=== PATIENT | female | born 1990 | race American Indian/Alaskan Native ===

== ENCOUNTER 2018-11-12 12:42 | Emergency (ER) | payer BC, MEDICAID, OTHER ==
--- NOTE | 2018-11-12 12:57 | Event Note ---
ED Screening Note Date of service: 11/12/18 Time: 12:52 ED Screening Note: This is a 28 y.o. F. that presents with vaginal bleeding. Changing pads every 5-10 minutes. Miscarriage 4-6 weeks ago in [place]. A1 This initial assessment/diagnostic orders/clinical plan/treatment(s) is/are subject to change based on patients health status, clinical progression and re- assessment by fellow clinical providers in the ED. Further treatment and workup at subsequent clinical providers discretion. Patient/guardian urged not to elope from the ED as their condition may be serious if not clinically assessed and managed. Initial orders include: labs and US Main ED
[2018-11-12 15:05] LABS: Basophils % (Auto) 0.8 % (0.0-1.8); Eosinophils # (Auto) 0.1 K/mm3 (0.0-0.4); Eosinophils % (Auto) 1.4 % (0.0-4.3); Hematocrit 31.5 % (30.3-42.9); Hemoglobin 10.4 gm/dl (10.1-14.3); Lymphocytes # (Auto) 2.2 K/mm3 (1.2-5.4); Lymphocytes % (Auto) 48.3 % (13.4-35.0); Mean Corpuscular HGB Conc 33 % (30-34); Mean Corpuscular Volume 73 fl (79-97); Monocytes # (Auto) 0.4 K/mm3 (0.0-0.8); Monocytes % (Auto) 8.6 % (0.0-7.3); Platelet Count 275 K/mm3 (140-440); Red Blood Count 4.34 M/mm3 (3.65-5.03); Red Cell Distribution Width 15.6 % (13.2-15.2)
--- NOTE | 2018-11-12 15:44 | Emergency Department Report ---
HPI - HPI HPI: Room 26 The patient is a 28-year-old female presenting with chief complaint of vaginal bleeding. Patient states about 6 weeks ago she had a miscarriage. The patient states she continued to have bleeding so she returned to the hospital floor where she had an ultrasound performed which did not reveal retained products of conception. She states 3 days later the bleeding slowed down to just vaginal s potting. The patient states 3 weeks ago she developed heavy vaginal bleeding going through approximately 14 pads per day. Patient complains of feeling fatigued. Patient states she recently moved to [place] from [place] and has not yet seen a licensed nuclear control room operator Location: Genitourinary system Duration: [See above] Quality: [See above] Severity: [See above] Modifying factors: [see above] Context: [see above] Mode of transportation: [not driving] <ROSE GUERRERO - Last Filed: 11/12/18 19:48> <TAVIA LE - Last Filed: 11/12/18 23:11> - General Chief Complaint: Vaginal Bleeding Time Seen by Provider: 11/12/18 12:51 ED Past Medical Hx - Past Medical History Additional medical history: Pre-Eclampsia both pregnancies AMENIA - Surgical History Additional Surgical History: 2010. 2011 - Family History Family history: no significant - Social History Smoking Status: Never Smoker Substance Use Type: None <ROSE GUERRERO - Last Filed: 11/12/18 19:48> <TAVIA LE - Last Filed: 11/12/18 23:11> - Medications Home Medications: Home Medications Medication Instructions Recorded Confirmed Last Taken Type Pnv95/Ferrous Fumarate/FA 1 each PO QDAY #30 tablet 09/08/13 Unknown Rx [ Vitamins] Acetaminophen [Non-Aspirin Extra 500 mg PO Q6HR PRN #30 tablet 11/12/18 Unknown Rx Strength] Ibuprofen [Motrin] 600 mg PO Q8H PRN #30 tablet 11/12/18 Unknown Rx ED Review of Systems ROS: Stated complaint: VAGINAL BLEEDING Other details as noted in HPI Constitutional: malaise (GENERAL: The patient is well-developed well-nourished []. []) Eyes: denies: eye pain ENT: denies: throat pain Respiratory: denies: no symptoms reported Cardiovascular: denies: chest pain Endocrine: no symptoms reported Gastrointestinal: denies: abdominal pain Genitourinary: abnormal menses Musculoskeletal: denies: back pain Skin: denies: lesions Neurological: denies: headache <ROSE GUERRERO Etienne - Last Filed: 11/12/18 19:48> ROS: Stated complaint: VAGINAL BLEEDING Other details as noted in HPI <TAVIA LE - Last Filed: 11/12/18 23:11> Physical Exam - Physical Exam Vital Signs: Vital Signs 11/12/18 12:49 Temperature 98.2 F Pulse Rate 86 Respiratory 20 Rate Blood Pressure 158/101 O2 Sat by Pulse 99 Oximetry Physical Exam: GENERAL: The patient is well-developed well-nourished female lying on stretcher not appearing to be in acute distress. [] HEENT: Normocephalic. Atraumatic. Extraocular motions are intact. Patient has moist mucous membranes. NECK: Supple. Trachea midline CHEST/LUNGS: Clear to auscultation. There is no respiratory distress noted. HEART/CARDIOVASCULAR: Regular. There is no tachycardia. There is no gallop rub or murmur. ABDOMEN: Abdomen is soft, nontender. Patient has normal bowel sounds. There is no abdominal distention. SKIN: There is no rash. There is no edema. There is no diaphoresis. NEURO: The patient is awake, alert, and oriented. The patient is cooperative. The patient has normal speech MUSCULOSKELETAL:There is no evidence of acute injury. PELVIC: Moderate amount of dark red blood in the vault <ROSE GUERRERO Etienne - Last Filed: 11/12/18 19:48> - Physical Exam Vital Signs: Vital Signs 11/12/18 11/12/18 11/12/18 12:49 16:31 21:02 Temperature 98.2 F 98.0 F Pulse Rate 86 88 Respiratory 20 20 Rate Blood Pressure 158/101 123/79 Blood Pressure 148/78 [Left] O2 Sat by Pulse 99 100 Oximetry <TAVIA LE - Last Filed: 11/12/18 23:11> ED Course Vital Signs 11/12/18 12:49 Temperature 98.2 F Pulse Rate 86 Respiratory 20 Rate Blood Pressure 158/101 O2 Sat by Pulse 99 Oximetry <ROSE GUERRERO Etienne - Last Filed: 11/12/18 19:48> Vital Signs 11/12/18 11/12/18 11/12/18 12:49 16:31 21:02 Temperature 98.2 F 98.0 F Pulse Rate 86 88 Respiratory 20 20 Rate Blood Pressure 158/101 123/79 Blood Pressure 148/78 [Left] O2 Sat by Pulse 99 100 Oximetry - Reevaluation(s) Reevaluation #1: 11/12/18 23:08 Laboratory studies reviewed. Ultrasound reports reviewed. Went back to evaluate the patient. The patient does not have any urinary symptoms. Do not think urinalysis indicated emergently at this time. She reports having had a miscarriage 4 or 5 weeks ago. Her ultrasound today suggests retained products of conception. Given her elevated blood pressure, she is not a candidate for Methergine. Contacted gynecology on-call, Dr. Mcdonald, and we discussed the case. She does not recommend Provera at this time. She does not recommend Cytotec at this time. She does recommend that the patient follow up with her first thing Thursday morning in order to discuss definitive care and plans. Of the history and physical, duration of symptoms, an objective available evidence, the patient does not meet criteria for hospitalization, were emergent D&C at this time. Went back and discussed this with the patient. She verbalizes understanding. She states that she is reliable to follow up <TAVIA LE - Last Filed: 11/12/18 23:11> ED Medical Decision Making - Lab Data Result diagrams: 11/12/18 13:18 - Differential Diagnosis menorrhagia, retained products of conception, metromenorrhagia <ROSE GUERRERO - Last Filed: 11/12/18 19:48> - Lab Data Result diagrams: 11/12/18 13:18 Vital Signs 11/12/18 11/12/18 11/12/18 12:49 16:31 21:02 Temperature 98.2 F 98.0 F Pulse Rate 86 88 Respiratory 20 20 Rate Blood Pressure 158/101 123/79 Blood Pressure 148/78 [Left] O2 Sat by Pulse 99 100 Oximetry Lab Results 11/12/18 11/12/18 11/12/18 Range/Units 13:18 14:48 14:48 WBC 4.6 (4.5-11.0) K/mm3 RBC 4.34 (3.65-5.03) M/mm3 Hgb 10.4 (10.1-14.3) gm/dl Hct 31.5 (30.3-42.9) % MCV 73 L (79-97) fl MCH 24 L (28-32) pg MCHC 33 (30-34) % RDW 15.6 H (13.2-15.2) % Plt Count 275 (140-440) K/mm3 Lymph % (Auto) 48.3 H (13.4-35.0) % [place] % (Auto) 8.6 H (0.0-7.3) % Eos % (Auto) 1.4 (0.0-4.3) % Baso % (Auto) 0.8 (0.0-1.8) % Lymph # 2.2 (1.2-5.4) K/mm3 Oldham # 0.4 (0.0-0.8) K/mm3 Eos # 0.1 (0.0-0.4) K/mm3 Baso # 0.0 (0.0-0.1) K/mm3 Seg Neutrophils % 40.9 (40.0-70.0) % Seg Neutrophils # 1.9 (1.8-7.7) K/mm3 HCG, Quant < 2 (0-4) mIU/mL Blood Type O POSITIVE Antibody Screen Negative - Radiology Data Radiology results: report reviewed, image reviewed Print Report Referring Physician: JOSESITO ZACARIAS Patient Name: MIGEL PERALTA Date of : 1990 Sex: Female Report Date: 2018-11-12 Report Status: [place] [address] Ultrasound Report Signed Patient: MIGEL PERALTA MR#: [id number] : Acct:[id number] Age/Sex: 28 / F ADM Date: 11/12/18 Loc: ED Attending Dr: Ordering Physician: WILLIAM CHI Date of Service: 11/12/18 Procedure(s): US transvaginal Accession Number(s): [id number] cc: WILLIAM CHI PROCEDURE: US PELVIC COMPLETE TECHNIQUE: Ultrasound of the pelvis using transabdominal and transvaginal imaging HISTORY: vaginal bleeding, recent miscarriage 2 weeks ago COMPARISONS: Ultrasound pelvis 09/08/2013 . FINDINGS: Uterus: Uterus is enlarged in size and normal and homogeneous in echogenicity. The uterus measures 11.7 x 4.4 x 6.4 cm in size, consistent with the uterus. There is a small rounded hypoechoic fibroid in the anterior right fundus measuring 2.3 x 2.8 x 2.4 cm. Endometrial stripe: There is heterogeneous echogenicity and thickness measuring 13.1 mm. However, there is arterial and venous blood flow noted in the endometrium in the fundal portion. Findings are concerning for retained products of conception. Ovaries: Both ovaries appear normal in size and echogenicity. Normal blood flow is noted on the right. Left ovarian blood flow could not be confirmed. The right ovary measures 3.2 x 2.0 x 2.9 cm and the left ovary measures 2.5 x 1.3 x 2.9 cm in size. Other: There is no evidence for solid adnexal mass or free fluid in the cul-de-sac seen. IMPRESSION: 1. Heterogeneous endometrial stripe. Blood flow is noted within the endometrium in its fundal portion. Possibility of retained products of conception should be considered 2. Small fibroid in the uterus 3. Bloodflow in the left ovary could not be confirmed This document is electronically signed by Jaelyn Kenyon MD., November 12 2018 06:36:38 PM ET Transcribed By: [facility] Dictated By: JAELYN KENYON MD Electronically Authenticated By: JAELYN KENYON MD Signed Date/Time: 11/12/182206 <TAVIA LE - Last Filed: 11/12/18 23:11> Critical care attestation.: If time is entered above; I have spent that time in minutes in the direct care of this critically ill patient, excluding procedure time. <ROSE GUERRERO - Last Filed: 11/12/18 19:48> Critical care attestation.: If time is entered above; I have spent that time in minutes in the direct care of this critically ill patient, excluding procedure time. <TAVIA LE - Last Filed: 11/12/18 23:11> ED Disposition Is pt being admited?: No Does the pt Need Aspirin: No <ROSE GUERRERO - Last Filed: 11/12/18 19:48> Is pt being admited?: No Does the pt Need Aspirin: No <TAVIA LE - Last Filed: 11/12/18 23:11> Clinical Impression: Vaginal bleeding Disposition: DC- TO HOME OR SELFCARE Condition: Stable Instructions: Menorrhagia (ED) Additional Instructions: Take the pain medications as needed/directed. Rest, avoid heavy lifting, and avoid strenuous physical activity. Follow-up with a licensed nuclear control room operator first thing Thursday to arrange further care. When contacting the front office, please make certain to let the office staff know that we spoke to Dr. Mcdonald, and she would like to see you in the office first thing Thursday. Return to the emergency room right away with new, worsening or different symptoms, or symptoms not present on the initial emergency room evaluation Return to the emergency department immediately should you develop worsening symptoms, fever, inability to tolerate food or liquid or any other concerns. Referrals: PRIMARY CARE, [Referring] - 3-5 Days CHIVO FERNANDEZ MD [Staff Physician] - 3-5 Days (Dr. Gloria is an ANDROID UI DEVELOPER. Please follow-up with her for further evaluation) JENNIFER MCDONALD MD [Staff Physician] - 3-5 Days
[2018-11-12 21:16] VITALS: BP 148/78
--- NOTE | 2018-11-12 22:07 | Ultrasound Report ---
PROCEDURE: US PELVIC COMPLETE TECHNIQUE: Ultrasound of the pelvis using transabdominal and transvaginal imaging HISTORY: vaginal bleeding, recent miscarriage 2 weeks ago COMPARISONS: Ultrasound pelvis 09/08/2013 . FINDINGS: Uterus: Uterus is enlarged in size and normal and homogeneous in echogenicity. The uterus measures 11.7 x 4.4 x 6.4 cm in size, consistent with the uterus. There is a small rounded hypoecho ic fibroid in the anterior right fundus measuring 2.3 x 2.8 x 2.4 cm. Endometrial stripe: There is heterogeneous echogenicity and thickness measuring 13.1 mm. However, the re is arterial and venous blood flow noted in the endometrium in the fundal portion. Findings are con cerning for retained products of conception. Ovaries: Both ovaries appear normal in size and echogenicity. Normal blood flow is noted on the righ t. Left ovarian blood flow could not be confirmed. The right ovary measures 3.2 x 2.0 x 2.9 cm and t he left ovary measures 2.5 x 1.3 x 2.9 cm in size. Other: There is no evidence for solid adnexal mass or free fluid in the cul-de-sac seen. IMPRESSION: 1. Heterogeneous endometrial stripe. Blood flow is noted within the endometrium in its fundal portion . Possibility of retained products of conception should be considered 2. Small fibroid in the uterus 3. Bloodflow in the left ovary could not be confirmed This document is electronically signed by Jaelyn Cohen MD., November 12 2018 06:36:38 PM ET
== END 2018-11-12 23:33 | disposition home or self-care (01) ==
LOC: ED 12:42
DX: N93.9 Abnormal uterine and vaginal bleeding, unspecified (principal); F17.200 Nicotine dependence, unspecified, uncomplicated; Z86.2 Personal history of diseases of the blood and blood-forming organs and certain disorders involving the immune mechanism
CPT/HCPCS: 36415; 76830; 76856; 84702; 85025; 86850; 86900; 86901

== ENCOUNTER 2021-07-17 02:52 | Emergency (ER) | payer MEDICAID ==
[2021-07-17 03:18] VITALS: BP 145/90
[2021-07-17] MEDS ORDERED: ACETAMINOPHEN 500 MG TAB PO ONE (03:57)
[2021-07-17 04:14] LABS: Bacteria,Urine 1+ /HPF (Negative); Mucus,Urine 3+ /HPF
[2021-07-17 04:16] LABS: RBC,Urine > 182.0 /HPF (0.0-6.0)
[2021-07-17 04:18] LABS: Basophils % (Auto) 0.3 % (0.0-1.8); Eosinophils # (Auto) 0.1 K/mm3 (0.0-0.4); Hematocrit 30.7 % (30.3-42.9); Hemoglobin 9.6 gm/dl (10.1-14.3); Lymphocytes # (Auto) 2.9 K/mm3 (1.2-5.4); Lymphocytes % (Auto) 47.4 % (13.4-35.0); Mean Corpuscular HGB Conc 31 % (30-34); Mean Corpuscular Volume 74 fl (79-97); Monocytes # (Auto) 0.4 K/mm3 (0.0-0.8); Monocytes % (Auto) 6.7 % (0.0-7.3); Platelet Count 221 K/mm3 (140-440); Red Blood Count 4.17 M/mm3 (3.65-5.03); Red Cell Distribution Width 15.4 % (13.2-15.2)
[2021-07-17 04:20] LABS: Alanine Aminotransferase 13 units/L (7-56); Albumin 4.5 g/dL (3.9-5); Blood Urea Nitrogen 7 mg/dL (7-17); Calcium 8.8 mg/dL (8.4-10.2); Hemolysis Index 1
[2021-07-17 04:30] LABS: Color,Urine Dark Yellow (Yellow)
[2021-07-17 04:31] LABS: Bilirubin,Urine Negative (Negative); Blood,Urine Moderate (Negative); Urobilinogen,Urine < 2.0 mg/dL (<2.0)
[2021-07-17 04:47] LABS: BUN/Creatinine Ratio 12
--- NOTE | 2021-07-17 05:16 | Ultrasound Report ---
US pelvic limited INDICATION / CLINICAL INFORMATION: PELVIC PAIN - BLEEDING, PRODUCT OF CONCEPTION. COMPARISON: None available. FINDINGS: Within the lower uterine segment/cervix there is heterogeneity with increased blood flow. No endometr ial fluid collections are seen. The uterus measures 11.5 cm in length. Ovaries/adnexa were not visualized. No free fluid is seen. IMPRESSION: 1. Heterogeneity and hypervascularity at the lower uterine segment/cervix. This is concerning for ret ained products of conception. Signer Name: Jeffery Tian MD Signed: 07/17/2021 5:12 AM Workstation Name: [id number]
--- NOTE | 2021-07-17 05:25 | Emergency Department Report ---
ED Female HPI - General Chief complaint: Vaginal Bleeding Stated complaint: POSS HEMORRHAGE Source: patient Mode of arrival: Ambulatory Limitations: No Limitations - History of Present Illness Initial comments: Patient is a A1 30-year-old -Spanish female with no past medical history presents to the ED with complaint of persistent pelvic pain with vaginal bleeding for the last 2 months. Patient states that she had a miscarriage 2 months ago and was given medications to expel all the products of conception but the pain and the bleeding has been persistent since then even though she finished the medication. Patient states that in the last 1 week, the bleeding has been heavier and the pain getting worse and she suspects that there are still products of conception trapped in her uterus. Patient states that she is new in the area and does not have an FINISHER HAND physician. Patient denies fever, chills, nausea, vomiting, dizziness, syncope, chest pain, shortness of breath, dyspareunia, dysuria, urinary frequency and urgency, low back pain or diarrhea. MD Complaint: vaginal bleeding, pelvic pain -: Gradual, week(s) (8) Location: suprapubic, other (VAGINAL) Radiation: non-radiating Severity scale (0 -10): 5 Quality: cramping, sharp Consistency: constant Improves with: none Worsens with: none Are you Now?: No (s/p miscarriage 2 months ago, suspected retained products of conception) Associated Symptoms: vaginal bleeding, abdominal pain (Suprapubic pain), hematuria. denies: nausea/vomiting, fever/chills, headaches, loss of appetite, shortness of breath, syncope, weakness - Related Data Sexually active: Yes : 3 Para: 2 A: 1 Previous Rx's Medication Instructions Recorded Last Taken Type Pnv95/Ferrous Fumarate/FA 1 each PO QDAY #30 tablet 09/08/13 Unknown Rx [ Vitamins] Acetaminophen [Non-Aspirin Extra 500 mg PO Q6HR PRN #30 tablet 11/12/18 Unknown Rx Strength] Ibuprofen [Motrin] 600 mg PO Q8H PRN #30 tablet 11/12/18 Unknown Rx Ibuprofen [Motrin] 800 mg PO Q8HR PRN #30 tablet 07/17/21 Unknown Rx Ondansetron [Zofran Odt] 4 mg PO Q8HR PRN #15 tab.rapdis 07/17/21 Unknown Rx Sulfamethoxazole/Trimethoprim 1 each PO Q12H #20 tab 07/17/21 Unknown Rx [Bactrim DS TAB] Allergies Allergy/AdvReac Type Severity Reaction Status Date / Time No Known Allergies Allergy Verified 11/12/18 12:43 ED Review of Systems ROS: Stated complaint: POSS HEMORRHAGE Other details as noted in HPI Constitutional: denies: chills, fever Eyes: denies: eye pain, eye discharge, vision change ENT: denies: ear pain, throat pain Respiratory: denies: cough, shortness of breath, wheezing Cardiovascular: denies: chest pain, palpitations Endocrine: no symptoms reported Gastrointestinal: abdominal pain (Pelvic pain). denies: nausea, vomiting, diarr hea Genitourinary: abnormal menses (Vaginal bleeding). denies: urgency, dysuria, discharge Musculoskeletal: denies: back pain, joint swelling, arthralgia Skin: denies: rash, lesions Neurological: denies: headache, weakness, paresthesias Psychiatric: denies: anxiety, depression Hematological/Lymphatic: denies: easy bleeding, easy bruising ED Past Medical Hx - Past Medical History Previous Medical History?: Yes Additional medical history: Pre-Eclampsia both pregnancies AMENIA - Surgical History Past Surgical History?: Yes Additional Surgical History: 2010. 2011. TOTAL OF 5 C- SECTIONS - Social History Smoking Status: Never Smoker Substance Use Type: None - Medications Home Medications: Home Medications Medication Instructions Recorded Confirmed Last Taken Type Pnv95/Ferrous Fumarate/FA 1 each PO QDAY #30 tablet 09/08/13 Unknown Rx [ Vitamins] Acetaminophen [Non-Aspirin Extra 500 mg PO Q6HR PRN #30 tablet 11/12/18 Unknown Rx Strength] Ibuprofen [Motrin] 600 mg PO Q8H PRN #30 tablet 11/12/18 Unknown Rx Ibuprofen [Motrin] 800 mg PO Q8HR PRN #30 tablet 07/17/21 Unknown Rx Ondansetron [Zofran Odt] 4 mg PO Q8HR PRN #15 tab.rapdis 07/17/21 Unknown Rx Sulfamethoxazole/Trimethoprim 1 each PO Q12H #20 tab 07/17/21 Unknown Rx [Bactrim DS TAB] ED Physical Exam - General Limitations: No Limitations General appearance: alert, in no apparent distress - Head Head exam: Present: atraumatic, normocephalic, normal inspection - Eye Eye exam: Present: normal appearance, PERRL, EOMI Pupils: Present: normal accommodation - ENT ENT exam: Present: normal exam, normal orophraynx, mucous membranes moist, TM's normal bilaterally, normal external ear exam - Neck Neck exam: Present: normal inspection, full ROM. Absent: tenderness - Respiratory Respiratory exam: Present: normal lung sounds bilaterally. Absent: respiratory distress, wheezes, rales, rhonchi, chest wall tenderness, accessory muscle use, decreased breath sounds, other - Cardiovascular Cardiovascular Exam: Present: regular rate, normal rhythm, normal heart sounds. Absent: systolic murmur, diastolic murmur, rubs, gallop - GI/Abdominal GI/Abdominal exam: Present: soft, tenderness (Palpable mild suprapubic tenderness), normal bowel sounds. Absent: guarding, rebound, hyperactive bowel sounds, hypoactive bowel sounds, mass - Bi-manual exam: Present: other (Pelvic exam deferred, patient prefers FINISHER HAND physician) - Extremities Exam Extremities exam: Present: normal inspection, full ROM, normal capillary refill - Back Exam Back exam: Present: normal inspection, full ROM. Absent: tenderness, CVA tenderness (R), CVA tenderness (L), muscle spasm, paraspinal tenderness - Neurological Exam Neurological exam: Present: alert, oriented X3, CN II-XII intact, normal gait, reflexes normal - Psychiatric Psychiatric exam: Present: normal affect, normal mood - Skin Skin exam: Present: warm, dry, intact, normal color. Absent: rash ED Course Vital Signs 07/17/21 07/17/21 03:17 03:18 Temperature 98.7 F Pulse Rate 74 Respiratory 18 Rate Blood Pressure 145/90 O2 Sat by Pulse 99 Oximetry ED Medical Decision Making - Lab Data Result diagrams: 07/17/21 03:43 07/17/21 03:43 - Radiology Data Radiology results: report reviewed, image reviewed [facility] [address] [place] [address] Ultrasound Report Signed Patient: MIGEL PERALTA MR#: [id number] : 1990 A cct:[id number] Age/Sex: 30 / F ADM Date: 07/17/21 Loc: ED Attending Dr: Ordering Physician: RUSTY HUSTON Date of Service: 07/17/21 Procedure(s): US pelvic limited Accession Number(s): [id number] cc: RUSTY HUSTON US pelvic limited INDICATION / CLINICAL INFORMATION: PELVIC PAIN - BLEEDING, PRODUCT OF CONCEPTION. COMPARISON: None available. FINDINGS: Within the lower uterine segment/cervix there is heterogeneity with increased blood flow. No endometrial fluid collections are seen. The uterus measures 11.5 cm in length. Ovaries/adnexa were not visualized. No free fluid is seen. IMPRESSION: 1. Heterogeneity and hypervascularity at the lower uterine segment/cervix. This is concerning for retained products of conception. Signer Name: Jeffery Tian MD Signed: 07/17/2021 5:12 AM Workstation Name: [id number] Transcribed By: [facility] Dictated By: Jeffery Tian MD Electronically Authenticated By: Jeffery Tian MD Signed Date/Time: 07/17/21511 DD/ 9 TD/TT: - Medical Decision Making This is a A1 30-year-old -Spanish female with no past medical history presents to the ED with complaint of persistent pelvic pain with vaginal bleeding for the last 2 months. Patient states that she had a miscarriage 2 months ago and was given medications to expel all the products of conception but the pain and the bleeding has been persistent since then even though she fini shed the medication. Patient states that in the last 1 week, the bleeding has been heavier and the pain getting worse and she suspects that there are still products of conception trapped in her uterus. Patient states that she is new in the area and does not have an FINISHER HAND physician. In the ED, patient is alert and oriented x3 and is not in any distress. Patient was treated for pain. Lab test results were reviewed and showed hCG quant of 91.42 and urinary tract infection in urinalysis. Pelvic ultrasound showed heterogeneity and hypervascularity at the lower uterine segment/cervix. This is concerning for retained products of conception. On reevaluation, patient's pain is well controlled medication. Patient will discharge home on pain medications and given a referral to the FINISHER HAND physician on-call Dr. Kay for follow-up in the next 2 to 3 days. Patient was advised to contact Dr. Kay's office first thing in the morning on Thursday, July 17, 2021 to schedule a follow-up appointment. Patient was also discharged home on pain medications and antibiotics for UTI. Patient was advised to return to the ED immediately if symptoms get worse. - Differential Diagnosis UTI; dysmenorrhea; uterine fibroid; ovarian cyst; Critical care attestation.: If time is entered above; I have spent that time in minutes in the direct care of this critically ill patient, excluding procedure time. ED Disposition Clinical Impression: Retained products of conception, early , Dysfunctional or functional uterine hemorrhage, Pelvic pain in female, Acute urinary tract infection Disposition: HOME / SELF CARE / HOMELESS Is pt being admited?: No Does the pt Need Aspirin: No Condition: Stable Instructions: Pelvic Pain, Female, [id number], and Urinary Tract Infection, Urinary Tract Infection, Adult, [id number], Metrorrhagia, [id number], Menorrhagia, [id number] Additional Instructions: All lab test results were reviewed and are all nonactionable except for urinalysis that showed gross hematuria and UTI. Pelvic ultrasound showed heterogeneity and hypervascularity at the lower uterine segment/cervix. This is concerning for retained products of conception. Therefore take medications as needed for pain, follow-up with the FINISH[employer] physician Dr. Kay in the next 2 to 3 days for reevaluation. Contact Dr. Kay's office first thing this morning Saturday, July 17, 2021 to schedule a follow-up appointment. Return to the ED immediately if symptoms get worse. Prescriptions: Sulfamethoxazole/Trimethoprim [Bactrim DS TAB] 1 each PO Q12H #20 tab Ibuprofen [Motrin] 800 mg PO Q8HR PRN #30 tablet PRN Reason: Pain , Severe (7-10) Ondansetron [Zofran Odt] 4 mg PO Q8HR PRN #15 tab.rapdis PRN Reason: Nausea Referrals: YANICK KAY MD [Staff Physician] - 2-3 Days Forms: Work/School Release Form(ED) Time of Disposition: 05:27 Print Language: YI
== END 2021-07-17 05:59 | disposition home or self-care (01) ==
LOC: ED 02:52
DX: O73.1 Retained portions of placenta and membranes, without hemorrhage (principal); N93.8 Other specified abnormal uterine and vaginal bleeding; R10.2 Pelvic and perineal pain; N39.0 Urinary tract infection, site not specified; Z98.890 Other specified postprocedural states
CPT/HCPCS: 36415; 76857; 80053; 81001; 84702; 85025; 86900; 86901; 87086; 99284

== ENCOUNTER 2021-07-17 12:36 | Observation (INO) | payer MEDICAID ==
[2021-07-17] MEDS ORDERED: SODIUM CHLORIDE 0.9% 1000 ML 1,000 ML IV ONE ×2 (12:47)
--- NOTE | 2021-07-17 12:59 | Emergency Department Report ---
HPI - General Chief Complaint: Vaginal Bleeding Time Seen by Provider: 07/17/21 12:47 - HPI HPI: Room 1 The patient is a 30-year-old female present with a chief complaint of vaginal bleeding. Patient is A1 status post a D&C performed at an outside facility by Dr. Leda Franklin while the patient was 6 weeks gestational age. Patient reportedly developed "profuse vaginal bleeding" during the suction curettage per EMS the estimated approximately 2 L of blood. Patient complains of fatigue. Patient had four 200 mcg Cytotec's inserted rectally by the transferring COLD ROLLING MACHINE SETTER prior to arrival ED Past Medical Hx - Past Medical History Previous Medical History?: No Additional medical history: Pre-Eclampsia both pregnancies, anemia - Surgical History Additional Surgical History: 2010. 2011. TOTAL OF 5 C- SECTIONS - Family History Family history: no significant - Social History Smoking Status: Never Smoker Substance Use Type: None - Medications Home Medications: Home Medications Medication Instructions Recorded Confirmed Last Taken Type Pnv95/Ferrous Fumarate/FA 1 each PO QDAY #30 tablet 09/08/13 Unknown Rx [ Vitamins] Acetaminophen [Non-Aspirin Extra 500 mg PO Q6HR PRN #30 tablet 11/12/18 Unknown Rx Strength] Ibuprofen [Motrin] 600 mg PO Q8H PRN #30 tablet 11/12/18 Unknown Rx Ibuprofen [Motrin] 800 mg PO Q8HR PRN #30 tablet 07/17/21 Unknown Rx Ondansetron [Zofran Odt] 4 mg PO Q8HR PRN #15 tab.rapdis 07/17/21 Unknown Rx Sulfamethoxazole/Trimethoprim 1 each PO Q12H #20 tab 07/17/21 Unknown Rx [Bactrim DS TAB] ED Review of Systems ROS: Stated complaint: BLOOD LOSS DURING Other details as noted in HPI Constitutional: weakness Eyes: denies: eye pain ENT: denies: throat pain Respiratory: shortness of breath Cardiovascular: denies: chest pain Endocrine: no symptoms reported Gastrointestinal: abdominal pain Genitourinary: abnormal menses Musculoskeletal: denies: back pain Neurological: denies: headache Physical Exam - Physical Exam Vital Signs: Vital Signs 07/17/21 12:37 Pulse Rate 67 Respiratory 20 Rate Blood Pressure 111/74 [Left] O2 Sat by Pulse 100 Oximetry Physical Exam: GENERAL: The patient is well-developed well-nourished female appearing lethargic lying on stretcher. [] HEENT: Normocephalic. Atraumatic. Extraocular motions are intact. Patient has moist mucous membranes. NECK: Supple. Trachea midline CHEST/LUNGS: Clear to auscultation. There is no respiratory distress noted. HEART/CARDIOVASCULAR: Regular. There is no tachycardia. There is no gallop rub or murmur. ABDOMEN: Abdomen is soft, with diffuse tenderness to palpation. Patient has normal bowel sounds. There is no abdominal distention. SKIN: There is no rash. There is no edema. There is no diaphoresis. NEURO: The patient is awake, and oriented but appears fatigued. The patient is cooperative. The patient has no focal neurologic deficits. The patient has normal speech. GCS 14 MUSCULOSKELETAL: There is no evidence of acute injury. PELVIC: Large amount of clots present in the vaginal vault. Moderate bleeding ED Course Vital Signs 07/17/21 12:37 Pulse Rate 67 Respiratory 20 Rate Blood Pressure 111/74 [Left] O2 Sat by Pulse 100 Oximetry - Consultations Consultation #1: 07/17/21 15:52 Case discussed with land management forester Dr. Blackwood- states can transfuse PRBCs and someone will eval ED Medical Decision Making - Lab Data Result diagrams: 07/17/21 12:41 07/17/21 12:41 - Radiology Data Radiology results: report reviewed (Pelvic ultrasound), image reviewed (Pelvic ultrasound) [facility] [address] [place] [address] Ultrasound Report Signed Patient: MIGEL PERALTA MR#: [id number] : 1990 Acct:[id number] Age/Sex: 30 / F ADM Date: 07/17/21 Loc: ED Attending Dr: Ordering Physician: RUSTY HUSTON Date of Service: 07/17/21 Procedure(s): US pelvic limited Accession Number(s): [id number] cc: RUSTY HUSTON US pelvic limited INDICATION / CLINICAL INFORMATION: PELVIC PAIN - BLEEDING, PRODUCT OF CONCEPTION. COMPARISON: None available. FINDINGS: Within the lower uterine segment/cervix there is heterogeneity with increased blood flow. No endometrial fluid collections are seen. The uterus measures 11.5 cm in length. Ovaries/adnexa were not visualized. No free fluid is seen. IMPRESSION: 1. Heterogeneity and hypervascularity at the lower uterine segment/cervix. This is concerning for retained products of conception. Signer Name: Jeffery Tian MD Signed: 07/17/2021 5:12 AM Workstation Name: [id number] Transcribed By: OLEG Dictated By: Jeffery Tian MD Electronically Authenticated By: Jeffery Tian MD Signed Date/Time: 07/17/21511 DD/ 9 [facility] [address] [place] [address] Ultrasound Report Signed Patient: MIGEL PERALTA MR#: [id number] : 1990 Acct:[id number] Age/Sex: 30 / F ADM Date: 07/17/21 Loc: ED Attending Dr: Ordering Physician: ROSE GUERRERO MD Date of Service: 07/17/21 Procedure(s): US transvaginal Accession Number(s): [id number] cc: ROSE GUERRERO MD ULTRASOUND PELVIS INDICATION / CLINICAL INFORMATION: Vaginal bleeding status post D C. TECHNIQUE: Transabdominal and Transvaginal. Duplex Color Doppler used: Yes. COMPARISON: None available FINDINGS: UTERUS: - Appearance: Somewhat heterogeneous echotexture of the myometrium. - Size (cm): 15.7 x 6.1 x 7.2 - E ndometrial complex is difficult to delineate secondary to heterogeneous somewhat echogenic tissue within the endometrial cavity. Thickness in cm (if measured) = 4.2 - Mass or cyst: None. - Additional findings: None. RIGHT ADNEXA: Right ovary nonvisualized. No right adnexal mass or free fluid. LEFT ADNEXA: No significant ovarian cyst or mass. Normal color Doppler blood flow. URINARY BLADDER: No significant abnormality. FREE FLUID: None. ADDITIONAL FINDINGS: None. IMPRESSION: 1. Heterogeneous echotexture of the uterus which is also somewhat enlarged. There is complex, heterogeneous and predominantly hyperechoic appearance of the endometrium which is thickened and measures 4.2 cm. No overt increased vascular flow of the endometrium to suggest retained products of conception. Overall, findings are favored be related to recent dilatation and curettage with retained thrombus in the endometrial cavity. However, close clinical and sonographic follow-up is recommended as clinically indicated. 2. No adnexal free fluid or mass. Signer Name: Teto Santos MD Signed: 07/17/2021 4:29 PM Workstation Name: [id number] Transcribed By: SB Dictated By: TETO SANTOS MD Electronically Authenticated By: TETO SANTOS MD Signed Date/Time: 07/17/211628 DD/ 24 TD/TT: - Differential Diagnosis Hemorrhagic shock Critical care attestation.: If time is entered above; I have spent that time in minutes in the direct care of this critically ill patient, excluding procedure time. ED Disposition Clinical Impression: Vaginal bleeding Disposition: ADMITTED INPATIENT Is pt being admited?: Yes Does the pt Need Aspirin: No Condition: Stable Referrals: PRIMARY CAREMD [Primary Care Provider] - 3-5 Days Time of Disposition: 17:10 (to OR)
[2021-07-17] MEDS ORDERED: LIDOCAINE (1%) 10 MG/1 ML VIAL 20 ML MDV INFILTRATI ONE (13:49)
[2021-07-17] MEDS ORDERED: ONDANSETRON 4 MG/2 ML INJ IV ONE (14:28)
[2021-07-17] MEDS ORDERED: fentaNYL 100 MCG/2 ML INJ IV ONE (14:32)
[2021-07-17 14:43] LABS: Basophils % (Auto) 0.5 % (0.0-1.8); Eosinophils # (Auto) 0.1 K/mm3 (0.0-0.4); Eosinophils % (Auto) 0.6 % (0.0-4.3); Hemoglobin 6.9 gm/dl (10.1-14.3); Lymphocytes # (Auto) 1.3 K/mm3 (1.2-5.4); Lymphocytes % (Auto) 14.2 % (13.4-35.0); Mean Corpuscular HGB Conc 31 % (30-34); Mean Corpuscular Volume 74 fl (79-97); Monocytes # (Auto) 0.4 K/mm3 (0.0-0.8); Monocytes % (Auto) 4.8 % (0.0-7.3); Platelet Count 179 K/mm3 (140-440); Red Blood Count 2.97 M/mm3 (3.65-5.03); Red Cell Distribution Width 15.7 % (13.2-15.2)
[2021-07-17 14:52] LABS: INR 1.16 (0.87-1.13)
[2021-07-17 14:53] LABS: Partial Thromboplastin Time 23.8 Sec. (24.2-36.6)
[2021-07-17 15:01] LABS: Alanine Aminotransferase 6 units/L (7-56); Albumin 3.4 g/dL (3.9-5); Blood Urea Nitrogen 7 mg/dL (7-17); Calcium 7.8 mg/dL (8.4-10.2); Hemolysis Index 21
[2021-07-17 15:43] LABS: BUN/Creatinine Ratio 14
--- NOTE | 2021-07-17 16:34 | Ultrasound Report ---
ULTRASOUND PELVIS INDICATION / CLINICAL INFORMATION: Vaginal bleeding status post D C. TECHNIQUE: Transabdominal and Transvaginal. Duplex Color Doppler used: Yes. COMPARISON: None available FINDINGS: UTERUS: - Appearance: Somewhat heterogeneous echotexture of the myometrium. - Size (cm): 15.7 x 6.1 x 7.2 - Endometrial complex is difficult to delineate secondary to heterogeneous somewhat echogenic tissue within the endometrial cavity. Thickness in cm (if measured) = 4.2 - Mass or cyst: None. - Additional findings: None. RIGHT ADNEXA: Right ovary nonvisualized. No right adnexal mass or free fluid. LEFT ADNEXA: No significant ovarian cyst or mass. Normal color Doppler blood flow. URINARY BLADDER: No significant abnormality. FREE FLUID: None. ADDITIONAL FINDINGS: None. IMPRESSION: 1. Heterogeneous echotexture of the uterus which is also somewhat enlarged. There is complex, hetero geneous and predominantly hyperechoic appearance of the endometrium which is thickened and measures 4 .2 cm. No overt increased vascular flow of the endometrium to suggest retained products of conception . Overall, findings are favored be related to recent dilatation and curettage with retained thrombus in the endometrial cavity. However, close clinical and sonographic follow-up is recommended as clinic ally indicated. 2. No adnexal free fluid or mass. Signer Name: Teto Santos MD Signed: 07/17/2021 4:29 PM Workstation Name: [id number]
--- NOTE | 2021-07-17 17:35 | Anesthesia Consultation ---
Anesthesia Consult and Med Hx Date of service: 07/17/21 - Airway Anesthetic Teeth Evaluation: Good ROM Head & Neck: Adequate Mental/Hyoid Distance: Adequate Mallampati Class: Class II Intubation Access Assessment: Good - Pulmonary Exam CTA: Yes - Cardiac Exam Cardiac Exam: RRR - Pre-Operative Health Status ASA Pre-Surgery Classification: ASA1 Proposed Anesthetic Plan: General - Hematic Hx Anemia: Yes - Additional Comments Anesthesia Medical History Comments: pt from outside facility for D/C, . est. blood loss 2 L
[2021-07-17] MEDS ORDERED: SODIUM CHLORIDE 0.9% 500 ML 500 ML IV ONE (17:36)
--- NOTE | 2021-07-17 17:36 | Anesthesia Day of Surgery ---
Anesthesia Day of Surgery - Day of Surgery Patient Examined: Yes Patient H&P Reviewed: Yes Patient is NPO: Yes
[2021-07-17 18:11] LABS: Bilirubin,Urine Negative (Negative); Blood,Urine Large (Negative); Color,Urine Red (Yellow); RBC,Urine > 182.0 /HPF (0.0-6.0)
[2021-07-17 18:12] LABS: Urobilinogen,Urine < 2.0 mg/dL (<2.0)
[2021-07-17] MEDS ORDERED: LACTATED RINGERS 1,000 ML IV SCH (22:00)
--- NOTE | 2021-07-17 22:01 | History and Physical Report ---
History of Present Illness Date of examination: 07/17/21 Date of admission: 07/17/2021 Chief complaint: Vaginal bleeding History of present illness: 30 y/o Sania Correa reports vaginal bleeding that has been worsening since June 02, 2021 when she was diagnoses with a 9 week miscarriage at [facility]. She was given Cytotec 800 mcg x1 to assist in the miscarriage passing. After the miscarriage passed, she had persistent bleeding. She recently obtained [place] and was unable to follow-up with a provider as an outpatient until now. The vaginal bleeding worsened, and she came to the E.D. for further evaluation and management. Today, retained products of conception was diagnosed on ultrasound. Hemoglobin was 6.9 g/dL, and the patient was transfused PRBC's in the E.D.. Now, she is to undergo urgent suction, D&C. Past History Past Medical History: other (Anemia) Past Surgical History: section ( delivery x5) Family/Genetic History: none Social history: no significant social history - Obstetrical History : 7 Para: 5 Hx # Term Pregnancies: 5 Spontaneous Abortions: 1 Medications and Allergies Allergies Allergy/AdvReac Type Severity Reaction Status Date / Time No Known Allergies Allergy Verified 07/17/21 12:41 Home Medications Medication Instructions Recorded Confirmed Last Taken Type Pnv95/Ferrous Fumarate/FA 1 each PO QDAY #30 tablet 09/08/13 Unknown Rx [ Vitamins] Acetaminophen [Non-Aspirin Extra 500 mg PO Q6HR PRN #30 tablet 11/12/18 Unknown Rx Strength] Ibuprofen [Motrin] 600 mg PO Q8H PRN #30 tablet 11/12/18 Unknown Rx Ibuprofen [Motrin] 800 mg PO Q8HR PRN #30 tablet 07/17/21 Unknown Rx Ondansetron [Zofran Odt] 4 mg PO Q8HR PRN #15 tab.rapdis 07/17/21 Unknown Rx Sulfamethoxazole/Trimethoprim 1 each PO Q12H #20 tab 07/17/21 Unknown Rx [Bactrim DS TAB] Active Meds: Active Medications Lactated Ringer's (Lactated Ringers) 1,000 mls @ 100 mls/hr IV DIRECT KEYLA Review of Systems All systems: negative - Vital Signs Vital signs: Vital Signs Pulse Resp BP Pulse Ox 67 20 111/74 100 07/17/21 12:37 07/17/21 12:37 07/17/21 12:37 07/17/21 12:37 Temp Pulse Resp BP Pulse Ox 98.3 F 72 16 125/63 100 07/17/21 20:42 07/17/21 20:42 07/17/21 20:42 07/17/21 20:42 07/17/21 20:42 - Physical Exam Breasts: Positive: normal Cardiovascular: Regular rate Lungs: Positive: Normal air movement Abdomen: Positive: normal appearance Genitourinary (Female): Positive: normal external genitalia Vulva: both: normal Vagina: Positive: normal moisture Cervix: Positive: other (Open) Uterus: Positive: enlarged Adnexa: both: normal Anus/Rectum: Positive: normal perianal skin Extremities: Positive: normal Deep Tendon Reflex Grade: Normal +2 Results Result Diagrams: 07/17/21 12:41 07/17/21 12:41 Abnormal lab results 07/17/21 07/17/21 07/17/21 Range/Units 12:41 12:41 12:41 RBC 2.97 L (3.65-5.03) M/mm3 Hgb 6.9 L (10.1-14.3) gm/dl Hct 22.0 L D (30.3-42.9) % MCV 74 L (79-97) fl MCH 23 L (28-32) pg RDW 15.7 H (13.2-15.2) % Seg Neutrophils % 79.9 H (40.0-70.0) % PT 16.1 H (12.2-14.9) Sec. INR 1.16 H (0.87-1.13) APTT 23.8 L (24.2-36.6) Sec. Chloride 109.4 H (98-107) mmol/L Carbon Dioxide 20 L (22-30) mmol/L Creatinine 0.5 L (0.6-1.2) mg/dL Glucose 113 H (65-100) mg/dL Calcium 7.8 L (8.4-10.2) mg/dL ALT 6 L (7-56) units/L Total Protein 5.6 L D (6.3-8.2) g/dL Albumin 3.4 L (3.9-5) g/dL HCG, Quant (0-4) mIU/mL Ur Specific [place] (1.003-1.030) Urine Blood (Negative) Crossmatch 07/17/21 07/17/21 07/17/21 Range/Units 12:41 14:20 Unknown RBC (3.65-5.03) M/mm3 Hgb (10.1-14.3) gm/dl Hct (30.3-42.9) % MCV (79-97) fl MCH (28-32) pg RDW (13.2-15.2) % Seg Neutrophils % (40.0-70.0) % PT (12.2-14.9) Sec. INR (0.87-1.13) APTT (24.2-36.6) Sec. Chloride (98-107) mmol/L Carbon Dioxide (22-30) mmol/L Creatinine (0.6-1.2) mg/dL Glucose (65-100) mg/dL Calcium (8.4-10.2) mg/dL ALT (7-56) units/L Total Protein (6.3-8.2) g/dL Albumin (3.9-5) g/dL HCG, Quant 60.30 H (0-4) mIU/mL Ur Specific [place] 1.035 H (1.003-1.030) Urine Blood Large A (Negative) Crossmatch See Detail All other labs normal. Ultrasound: report reviewed (Retained products of conception.) Assessment and Plan - Patient Problems (1) Vaginal bleeding Current Visit: Yes Status: Acute Plan to address problem: Etiology is from retained products of conception. (2) Retained products of conception, early Current Visit: No Status: Acute Plan to address problem: Plan is suction, D&C. The risks, alternatives, and benefits were explained to the patient. She agreed and signed consent. I spoke with Karie Hogan RN (powerhouse helper) to mobilize the on-call O.R. team due to the urgent nature of this case. (3) Anemia affecting in first trimester Current Visit: Yes Status: Acute Plan to address problem: The patient was transfused blood in the E.R..
[2021-07-17] MEDS ORDERED: ACETAMINOPHEN 325 MG TAB PO PRN (22:37)
[2021-07-17] MEDS ORDERED: oxyCODONE /ACETAMINOPHEN 5-325MG TAB PO PRN (22:37)
[2021-07-17] MEDS ORDERED: HYDROmorphone 1 MG/1 ML INJ IV PRN (22:37)
[2021-07-17] MEDS ORDERED: ONDANSETRON 4 MG/2 ML INJ IV PRN (22:37)
[2021-07-17] MEDS ORDERED: propofoL 200 MG/20 ML VIAL IV ONE (22:58)
[2021-07-17] MEDS ORDERED: MIDAZOLAM 2 MG/2 ML INJ ONE (22:58)
[2021-07-17] MEDS ORDERED: SILVER NITRATE APPLICATOR 1 EA TP ONE (23:09)
[2021-07-17] MEDS ORDERED: METHYLERGONOVINE MALEATE 0.2 MG/ML VIAL IM ONE (23:09)
[2021-07-17] MEDS ORDERED: KETAMINE/STERILE WATER 50 MG/ML SYRINGE ONE (23:09)
[2021-07-17] MEDS ORDERED: ONDANSETRON 4 MG/2 ML INJ ONE (23:11)
[2021-07-17] MEDS ORDERED: GLYCOPYRROLATE 0.4 MG/2 ML INJ ONE (23:11)
[2021-07-17] MEDS ORDERED: dexAMETHasone 20 MG/5 ML VIAL ONE (23:11)
[2021-07-17] MEDS ORDERED: ceFAZolin 1 GM VIAL ONE (23:13)
--- NOTE | 2021-07-17 23:53 | Operative Report ---
Operative Report Operative Report: PREOPERATIVE DIAGNOSIS: Retained products of conception. POSTOPERATIVE DIAGNOSIS: Incomplete . PROCEDURE PERFORMED: Suction dilation and curettage under real-time sonographic guidance. SURGEON: Dago Thomas M.D. ANESTHESIA: General via LMA INTRAVENOUS FLUIDS: 700 mL. ESTIMATED BLOOD LOSS: Less than 100 mL. URINE OUTPUT: 300 mL. SPECIMENS: Products of conception. PROCEDURE: The patient was taken to the operating room where a general anesthetic was administered. She was then positioned in the dorsal lithotomy position and prepped and draped in the normal sterile fashion. Once the anesthetic was found to be adequate, a bimanual exam was performed under anesthetic. Next, a bivalve speculum was placed in the vagina. The anterior lip of cervix was grasped with the vulsellum tenaculum. The cervix was progressively dilated with the Bonilla dilators to #31. A size 12 straight suctio n curette was used and connected to the suction and was placed in the cervix and a suction curettage was performed under real-time sonographic guidance. Several passes were made with the suction curettage. Next, a sharp curettage was performed gently obtaining a small amount of tissue and this was followed by third suction curettage. After the procedure, the vulsellum tenaculum was removed. The puncture sites on the cervix was seemed to be hemostatic. The speculum was removed. The patient was taken from the operating room in stable condition after she was cleaned. All counts were correct x2.
[2021-07-18] MEDS ORDERED: HYDROcodone/ACETAMINOPHEN 5-325 MG TAB PO PRN (00:01)
[2021-07-18] MEDS ORDERED: IBUPROFEN 600 MG TAB PO PRN (00:01)
--- NOTE | 2021-07-18 00:05 | Post Anesthesia Evaluation ---
- Post Anesthesia Evaluation Patient Participated: Yes Airway Patent: Yes Stable Respiratory Function: Yes Nausea/Vomiting: No Temp > 96.8F: Yes Pain Manageable: Yes Adequeate Hydration: Yes Anesthesia Complications: No Patient on Ventilator: No
--- NOTE | 2021-07-18 10:05 | Ultrasound Report ---
Pelvic Ultrasound HISTORY: Pos-op from suction D C for retained POC's. TECHNIQUE: Grayscale and color imaging performed. COMPARISON: Pelvic ultrasound from yesterday FINDINGS: Uterus measures 13.5 x 6.5 x 6.2 cm with thickened endometrial complex measuring up to 2.8 cm in maximal thickness. The endometrium is slightly heterogeneous with some internal fluid but no bl ood flow noted within the endometrium. Ovaries were not included on this exam. IMPRESSION: Heterogeneous appearance of the endometrial complex containing a small amount of fluid is well. No internal blood flow to suggest retained products. Findings most likely represent blood clot s/blood products given the history. Signer Name: Hong Parker MD Signed: 07/18/2021 10:01 AM Workstation Name: [id number]
[2021-07-18 11:28] LABS: Basophils % (Auto) 0.1 % (0.0-1.8); Hematocrit 21.3 % (30.3-42.9); Hemoglobin 7.2 gm/dl (10.1-14.3); Lymphocytes # (Auto) 0.8 K/mm3 (1.2-5.4); Lymphocytes % (Auto) 10.5 % (13.4-35.0); Mean Corpuscular HGB Conc 34 % (30-34); Mean Corpuscular Volume 76 fl (79-97); Monocytes # (Auto) 0.1 K/mm3 (0.0-0.8); Monocytes % (Auto) 1.9 % (0.0-7.3); Platelet Count 180 K/mm3 (140-440); Red Blood Count 2.81 M/mm3 (3.65-5.03); Red Cell Distribution Width 17.6 % (13.2-15.2)
--- NOTE | 2021-07-18 11:41 | Progress Note ---
Assessment and Plan POD#1 Dilatation and curettage for incomplete AB doing well; asymptomatic anemia 1. Discharge pt home today on iron supplement and follow up in the office in 4wks. 2. Pt to decide on contraception at a later date Subjective Date of service: 07/18/21 Principal diagnosis: POD#1 dilatation and curettage Interval history: pt has no complaints and states that her bleeding is scant. Denies pelvic pain. Denies N/V/F/C Objective - Constitutional Vitals: Vital Signs - 12hr 07/17/21 07/17/21 07/18/21 23:50 23:55 00:00 Temperature 97.3 F L Pulse Rate 94 H 81 73 Respiratory 12 16 17 Rate Blood Pressure 123/76 121/75 121/65 Blood Pressure [Left] O2 Sat by Pulse 100 100 100 Oximetry 07/18/21 07/18/21 07/18/21 00:05 00:18 00:20 Temperature Pulse Rate 73 72 Respiratory 18 17 17 Rate Blood Pressure 119/77 119/72 Blood Pressure [Left] O2 Sat by Pulse 100 100 Oximetry 07/18/21 07/18/21 07/18/21 00:35 00:38 00:48 Temperature 98.0 F Pulse Rate 78 Respiratory 17 17 Rate Blood Pressure 129/74 Blood Pressure [Left] O2 Sat by Pulse 100 99 Oximetry 07/18/21 07/18/21 07/18/21 00:50 02:14 05:47 Temperature 97.6 F 97.6 F 97.4 F L Pulse Rate 66 66 68 Respiratory 17 20 18 Rate Blood Pressure 128/86 121/78 Blood Pressure 128/86 [Left] O2 Sat by Pulse 99 99 99 Oximetry 07/18/21 07/18/21 08:56 09:00 Temperature 97.7 F Pulse Rate 79 Respiratory 20 Rate Blood Pressure 112/67 Blood Pressure [Left] O2 Sat by Pulse 100 100 Oximetry General appearance: Present: no acute distress - Neck Neck: normal ROM - Respiratory Respiratory effort: normal - Cardiovascular Rhythm: regular Extremities: No edema - Gastrointestinal General gastrointestinal: Present: soft, non-tender - Genitourinary Female genitourinary: other (vag bleed scant) - Integumentary Integumentary: warm, dry - Neurologic Neurologic: moves all extremities - Psychiatric Psychiatric: cooperative - Labs CBC & Chem 7: 07/18/21 10:30 07/17/21 12:41 Labs: Abnormal lab results 07/17/21 07/17/21 07/17/21 Range/Units 12:41 12:41 12:41 RBC 2.97 L (3.65-5.03) M/mm3 Hgb 6.9 L (10.1-14.3) gm/dl Hct 22.0 L D (30.3-42.9) % MCV 74 L (79-97) fl MCH 23 L (28-32) pg RDW 15.7 H (13.2-15.2) % Lymph % (Auto) (13.4-35.0) % Lymph # (Auto) (1.2-5.4) K/mm3 Seg Neutrophils % 79.9 H (40.0-70.0) % PT 16.1 H (12.2-14.9) Sec. INR 1.16 H (0.87-1.13) APTT 23.8 L (24.2-36.6) Sec. Chloride 109.4 H (98-107) mmol/L Carbon Dioxide 20 L (22-30) mmol/L Creatinine 0.5 L (0.6-1.2) mg/dL Glucose 113 H (65-100) mg/dL Calcium 7.8 L (8.4-10.2) mg/dL ALT 6 L (7-56) units/L Total Protein 5.6 L D (6.3-8.2) g/dL Albumin 3.4 L (3.9-5) g/dL HCG, Quant (0-4) mIU/mL Ur Specific [place] (1.003-1.030) Urine Blood (Negative) Crossmatch 07/17/21 07/17/21 07/17/21 Range/Units 12:41 14:20 Unknown RBC (3.65-5.03) M/mm3 Hgb (10.1-14.3) gm/dl Hct (30.3-42.9) % MCV (79-97) fl MCH (28-32) pg RDW (13.2-15.2) % Lymph % (Auto) (13.4-35.0) % Lymph # (Auto) (1.2-5.4) K/mm3 Seg Neutrophils % (40.0-70.0) % PT (12.2-14.9) Sec. INR (0.87-1.13) APTT (24.2-36.6) Sec. Chloride (98-107) mmol/L Carbon Dioxide (22-30) mmol/L Creatinine (0.6-1.2) mg/dL Glucose (65-100) mg/dL Calcium (8.4-10.2) mg/dL ALT (7-56) units/L Total Protein (6.3-8.2) g/dL Albumin (3.9-5) g/dL HCG, Quant 60.30 H (0-4) mIU/mL Ur Specific [place] 1.035 H (1.003-1.030) Urine Blood Large A (Negative) Crossmatch See Detail 07/18/21 Range/Units 10:30 RBC 2.81 L (3.65-5.03) M/mm3 Hgb 7.2 L (10.1-14.3) gm/dl Hct 21.3 L (30.3-42.9) % MCV 76 L (79-97) fl MCH 26 L (28-32) pg RDW 17.6 H (13.2-15.2) % Lymph % (Auto) 10.5 L (13.4-35.0) % Lymph # (Auto) 0.8 L (1.2-5.4) K/mm3 Seg Neutrophils % 87.5 H (40.0-70.0) % PT (12.2-14.9) Sec. INR (0.87-1.13) APTT (24.2-36.6) Sec. Chloride (98-107) mmol/L Carbon Dioxide (22-30) mmol/L Creatinine (0.6-1.2) mg/dL Glucose (65-100) mg/dL Calcium (8.4-10.2) mg/dL ALT (7-56) units/L Total Protein (6.3-8.2) g/dL Albumin (3.9-5) g/dL HCG, Quant (0-4) mIU/mL Ur Specific [place] (1.003-1.030) Urine Blood (Negative) Crossmatch Medications & Allergies - Medications Allergies/Adverse Reactions: Allergies No Known Allergies Allergy (Verified 07/17/21 12:41) Home Medications: Home Medications Medication Instructions Recorded Confirmed Last Taken Type Pnv95/Ferrous Fumarate/FA 1 each PO QDAY #30 tablet 09/08/13 Unknown Rx [ Vitamins] Acetaminophen [Non-Aspirin Extra 500 mg PO Q6HR PRN #30 tablet 11/12/18 Unknown Rx Strength] Ibuprofen [Motrin] 600 mg PO Q8H PRN #30 tablet 11/12/18 Unknown Rx Ibuprofen [Motrin] 800 mg PO Q8HR PRN #30 tablet 07/17/21 Unknown Rx Ondansetron [Zofran Odt] 4 mg PO Q8HR PRN #15 tab.rapdis 07/17/21 Unknown Rx Sulfamethoxazole/Trimethoprim 1 each PO Q12H #20 tab 07/17/21 Unknown Rx [Bactrim DS TAB] Active Medications: Generic Name Dose Route Start Last Admin Trade Name Freq PRN Reason Stop Dose Admin Hydrocodone Bitart/Acetaminophen 2 each 07/18/21 00:01 07/18/21 06:15 Hydrocodone/Acetaminophen 5-325 Mg Tab PO 1 each Q6H PRN Administration Pain, Moderate (4-6) Lactated Ringer's 1,000 mls @ 100 mls/hr 07/17/21 22:00 07/18/21 01:07 Lactated Ringers IV 100 mls/hr DIRECT KEYLA Administration Ibuprofen 600 mg 07/18/21 00:01 Ibuprofen 600 Mg Tab PO Q6H PRN Pain, Mild (1-3) Ondansetron HCl 4 mg 07/17/21 22:37 Ondansetron 4 Mg/2 Ml Inj IV ONCE PRN Nausea And Vomiting
--- NOTE | 2021-07-18 11:45 | Discharge Summary ---
Providers - Providers Date of Admission: 07/17/21 21:51 Date of discharge: 07/18/21 Attending physician: CRISTINA CAMERON MD 07/17/21 15:53 Consult to Physician [CONS] Urgent Comment: Consulting Provider: MORE SALAS Physician Instructions: Reason For Exam: Vaginal bleeding, missed AB, RPOC Primary care physician: [facility] [employer] Hospitalization Reason for admission: other (Incomplete with vag bleed) Procedure: other (suction dilation and curettage) Episiotomy: none Laceration: none Other procedures: none complications: none Discharge diagnosis: other (Complete , s/p dilatation and curettage) Hospital course: Pt admitted post procedure suction dilatation and curettage via ultrasound guidance done by Dr. Thomas and post op course uneventful. Pt was transfused prior to the procedure with hgb 6.9 and post op hgb today was 7.2 and pt asymptomatic. Condition at discharge: Good Disposition: 01 HOME / SELF CARE / HOMELESS Plan - Discharge Medications Prescriptions: Ferrous Sulfate [Ferrous Sulfate 324 MG] 324 mg PO TID 30 Days #90 Ibuprofen [Motrin] 800 mg PO Q8HR PRN 21 Days #30 tablet PRN Reason: Pain, Mild (1-3) oxyCODONE /ACETAMINOPHEN [Percocet 5/325] 1 tab PO Q4HR PRN 15 Days #20 tab PRN Reason: Pain , Severe (7-10) Ascorbic Acid [Vitamin C] 500 mg PO BID 30 Days #60 - Provider Discharge Summary Activity: no sex for 6 weeks Diet: routine Instructions: routine Additional instructions: [] Smoking cessation referral if applicable(refer to patient education folder for contact #) [] Refer to [facility] Booklet Call your doctor immediately for: * Fever > 100.5 * Heavy vaginal bleeding ( >1 pad per hour) * Severe persistent headache * Shortness of breath * Reddened, hot, painful area to leg or breast * NO Tub bath, only showers - Follow up plan Follow up: PRIMARY CARE, [Primary Care Provider] - 3-5 Days MORE SALAS MD [Staff Physician] - 6 Weeks Forms: Accompanied Note, [facility] Discharge Summary
[2021-07-18 13:08] VITALS: BP 126/75
--- NOTE | 2021-07-18 14:13 | Post Anesthesia Evaluation ---
- Post Anesthesia Evaluation Other Comments: patient was discharged home earlier today in good condition
== END 2021-07-18 13:00 | disposition home or self-care (01) ==
LOC: ED 12:36 → OB 21:51
PROVIDERS: ADMIT Obstetrics & Gynecology; ATTEND Obstetrics & Gynecology
DX: O02.1 Missed abortion (principal); Z20.822 Contact with and (suspected) exposure to COVID-19; O03.9 Complete or unspecified spontaneous abortion without complication; O03.4 Incomplete spontaneous abortion without complication; O99.011 Anemia complicating pregnancy, first trimester; D64.9 Anemia, unspecified; Z3A.09 9 weeks gestation of pregnancy; Z98.891 History of uterine scar from previous surgery; Z79.82 Long term (current) use of aspirin; Z79.899 Other long term (current) drug therapy; Z98.890 Other specified postprocedural states
CPT/HCPCS: 36415; 36430; 59812; 76801; 76830; 80053; 81001; 84702; 85025; 85610; 85730; 86850; 86900; 86901; 86920; 88305; 96374; 96375; 99284; G0378; J0690; J1100; J1170; J1815; J2210; J2250; J2405; J2704; J3010; J3490; J7030; J7040; J7120; P9016; U0003; Q0162

== ENCOUNTER 2021-07-19 09:34 | Emergency (ER) | payer MEDICAID ==
[2021-07-19 09:58] VITALS: BP 114/80
[2021-07-19] MEDS ORDERED: hydrOXYzine PAMOATE 25 MG CAP PO ONE (10:55)
--- NOTE | 2021-07-19 11:31 | XRay Report ---
XR chest routine 2V INDICATION / CLINICAL INFORMATION: sob. COMPARISON: None available. FINDINGS: SUPPORT DEVICES: None. HEART /PULMONARY VASCULATURE: No significant abnormality. LUNGS / PLEURA: No significant pulmonary or pleural abnormality. No pneumothorax. ADDITIONAL FINDINGS: No significant additional findings. IMPRESSION: 1. No acute findings. Signer Name: Law Powell MD Signed: 07/19/2021 11:27 AM Workstation Name: [id number]
--- NOTE | 2021-07-19 11:59 | Emergency Department Report ---
ED Shortness of Breath HPI - General Chief Complaint: Dyspnea/Respdistress Stated Complaint: SOB Time Seen by Provider: 07/19/21 10:51 Source: patient Mode of arrival: Ambulatory Limitations: No Limitations - History of Present Illness Initial Comments: 30-year-old black female with no past medical history presents to the emergency department for evaluation of shortness of breath. She states that she had a miscarriage in late May and was found to have retention of products and cervix, so she went to her [facility] office yesterday and had an in office procedure to remove products. She states that during the procedure she started to hemorrhage and the doctor in the office was unable to get it stop, so she was transported emergently here yesterday and went to the OR and underwent the for D&C. She states that she had several units of blood products and was DC'd home late last night. She states that she is not having any vaginal bleeding anymore but when she woke up today she said she felt like her heart was in "overdrive". She states that it feels like her heart is pounding and she cannot catch her breath. She states that she has never had this feeling before and is concerned that she may be having a reaction to the blood. She states that she is not having any abdominal pain back pain vaginal bleeding or fever. She states that yesterday it was very scary and she is glad to be here and just wants to be sure that everything is okay. Complaint: shortness of breath -: Sudden Pain Scale: 0 Improves With: nothing Worsens With: nothing Associated Symptoms: denies other symptoms Treatments Prior to Arrival: none - Related Data Previous Rx's Medication Instructions Recorded Last Taken Type Pnv95/Ferrous Fumarate/FA 1 each PO QDAY #30 tablet 09/08/13 Unknown Rx [ Vitamins] Acetaminophen [Non-Aspirin Extra 500 mg PO Q6HR PRN #30 tablet 11/12/18 Unknown Rx Strength] Ibuprofen [Motrin] 600 mg PO Q8H PRN #30 tablet 11/12/18 Unknown Rx Ibuprofen [Motrin] 800 mg PO Q8HR PRN #30 tablet 07/17/21 Unknown Rx Ondansetron [Zofran Odt] 4 mg PO Q8HR PRN #15 tab.rapdis 07/17/21 Unknown Rx Sulfamethoxazole/Trimethoprim 1 each PO Q12H #20 tab 07/17/21 Unknown Rx [Bactrim DS TAB] Ascorbic Acid [Vitamin C] 500 mg PO BID 30 Days #60 07/18/21 Unknown Rx Ferrous Sulfate [Ferrous Sulfate 324 mg PO TID 30 Days #90 07/18/21 Unknown Rx 324 MG] Ibuprofen [Motrin] 800 mg PO Q8HR PRN 21 Days #30 07/18/21 Unknown Rx tablet oxyCODONE /ACETAMINOPHEN [Percocet 1 tab PO Q4HR PRN 15 Days #20 tab 07/18/21 Unknown Rx 5/325] hydrOXYzine PAMOATE [Vistaril] 25 mg PO Q6HR PRN #12 capsule 07/19/21 Unknown Rx Allergies Allergy/AdvReac Type Severity Reaction Status Date / Time No Known Allergies Allergy Verified 07/17/21 12:41 ED Review of Systems ROS: Stated complaint: SOB Other details as noted in HPI Comment: All other systems reviewed and negative Constitutional: denies: chills, fever Eyes: denies: eye pain ENT: denies: ear pain Respiratory: shortness of breath. denies: cough, orthopnea, SOB with exertion, SOB at rest Cardiovascular: denies: chest pain, palpitations, dyspnea on exertion, orthopnea Endocrine: no symptoms reported Gastrointestinal: denies: abdominal pain, nausea, vomiting Genitourinary: denies: urgency, dysuria, frequency, hematuria, discharge Musculoskeletal: denies: back pain Skin: denies: rash, lesions Neurological: denies: headache, weakness, numbness, paresthesias, abnormal gait Psychiatric: denies: anxiety, depression Hematological/Lymphatic: denies: easy bleeding, easy bruising ED Past Medical Hx - Past Medical History Additional medical history: Pre-Eclampsia both pregnancies, anemia - Surgical History Additional Surgical History: 2010. 2011. TOTAL OF 5 C- SECTIONS - Social History Smoking Status: Never Smoker Substance Use Type: None - Medications Home Medications: Home Medications Medication Instructions Recorded Confirmed Last Taken Type Pnv95/Ferrous Fumarate/FA 1 each PO QDAY #30 tablet 09/08/13 Unknown Rx [ Vitamins] Acetaminophen [Non-Aspirin Extra 500 mg PO Q6HR PRN #30 tablet 11/12/18 Unknown Rx Strength] Ibuprofen [Motrin] 600 mg PO Q8H PRN #30 tablet 11/12/18 Unknown Rx Ibuprofen [Motrin] 800 mg PO Q8HR PRN #30 tablet 07/17/21 Unknown Rx Ondansetron [Zofran Odt] 4 mg PO Q8HR PRN #15 tab.rapdis 07/17/21 Unknown Rx Sulfamethoxazole/Trimethoprim 1 each PO Q12H #20 tab 07/17/21 Unknown Rx [Bactrim DS TAB] Ascorbic Acid [Vitamin C] 500 mg PO BID 30 Days #60 07/18/21 Unknown Rx Ferrous Sulfate [Ferrous Sulfate 324 mg PO TID 30 Days #90 07/18/21 Unknown Rx 324 MG] Ibuprofen [Motrin] 800 mg PO Q8HR PRN 21 Days #30 07/18/21 Unknown Rx tablet oxyCODONE /ACETAMINOPHEN [Percocet 1 tab PO Q4HR PRN 15 Days #20 tab 07/18/21 Unknown Rx 5/325] hydrOXYzine PAMOATE [Vistaril] 25 mg PO Q6HR PRN #12 capsule 07/19/21 Unknown Rx ED Physical Exam - General Limitations: No Limitations General appearance: alert, in no apparent distress - Head Head exam: Present: atraumatic, normocephalic - Eye Eye exam: Present: normal appearance. Absent: conjunctival injection - Neck Neck exam: Present: normal inspection. Absent: tenderness - Respiratory Respiratory exam: Present: normal lung sounds bilaterally. Absent: respiratory distress, wheezes, rales, rhonchi, stridor, chest wall tenderness - Cardiovascular Cardiovascular Exam: Present: regular rate, normal heart sounds - GI/Abdominal GI/Abdominal exam: Present: soft, normal bowel sounds. Absent: distended, tenderness, guarding, rebound, rigid - Extremities Exam Extremities exam: Present: normal inspection - Back Exam Back exam: Present: normal inspection, full ROM. Absent: tenderness, CVA tenderness (R), CVA tenderness (L), paraspinal tenderness, vertebral tenderness - Neurological Exam Neurological exam: Present: alert, oriented X3 - Psychiatric Psychiatric exam: Present: normal affect, normal mood - Skin Skin exam: Present: warm, dry, intact, normal color ED Course Vital Signs 07/19/21 07/19/21 09:55 09:57 Temperature 98.2 F 98.2 F Pulse Rate 77 Respiratory 18 Rate Blood Pressure 114/80 O2 Sat by Pulse 100 Oximetry - Reevaluation(s) Reevaluation #1: Patient states that she feels better. 07/19/21 11:55 ED Medical Decision Making - Medical Decision Making 30-year-old black female with no past medical history presents to the emergency department for evaluation of shortness of breath. She states that she had a miscarriage in late May and was found to have retention of products and cervix, so she went to her [facility]'s office yesterday and had an in office procedure to remove products. She states that during the procedure she started to hemorrhage and the doctor in the office was unable to get it stop, so she was transported emergently here yesterday and went to the OR and underwent the for D&C. She states that she had several units of blood products and was DC'd home late last night. She states that she is not having any vaginal bleeding anymore but when she woke up today she said she felt like her heart was in "overdrive". She states that it feels like her heart is pounding and she cannot catch her breath. She states that she has never had this feeling before and is concerned that she may be having a reaction to the blood. She states that she is not having any abdominal pain back pain vaginal bleeding or fever. She states that yesterday it was very scary and she is glad to be here and just wants to be sure that everything is okay. Chest x-ray without any acute abnormalities. Patient felt better after Vistaril. Symptoms symptoms likely related to anxiety related to emergency procedure yesterday. She was advised to take medications as prescribed and follow-up with primary care provider or [facility] as previously planned. She was advised to return to the emergency department if worsening symptoms. She verbalized understanding of and agreement with plan of care. Critical care attestation.: If time is entered above; I have spent that time in minutes in the direct care of this critically ill patient, excluding procedure time. ED Disposition Clinical Impression: Shortness of breath, Anxiety Disposition: 01 HOME / SELF CARE / HOMELESS Is pt being admited?: No Does the pt Need Aspirin: No Condition: Stable Instructions: Shortness of Breath, Adult, [id number], Managing Anxiety, Adult Additional Instructions: Take medications as prescribed. Follow-up with primary care provider or [facility] as previously planned. Return to the emergency department if worsening symptoms. Prescriptions: hydrOXYzine PAMOATE [Vistaril] 25 mg PO Q6HR PRN #12 capsule PRN Reason: Anxiety Referrals: STEFFI MOTA MD [Referring] - 3-5 Days Time of Disposition: 11:58
== END 2021-07-19 12:24 | disposition home or self-care (01) ==
LOC: ED 09:34
DX: F41.9 Anxiety disorder, unspecified (principal); R06.02 Shortness of breath; Z98.890 Other specified postprocedural states; Z79.899 Other long term (current) drug therapy
CPT/HCPCS: 71046; 99283